=== PATIENT | female | born 1970 | race Hispanic/Latino ===

== ENCOUNTER → 2019-06-12 | Outpatient (CLI) | payer BC | END | disposition home or self-care (01) | LOC: RAH 08:32 | PROVIDERS: ATTEND Internal Medicine Cardiovascular Disease | DX: R06.01 Orthopnea (principal) | CPT/HCPCS: 93306 ==

== ENCOUNTER 2021-01-02 06:33 | Day surgery (SDC) | payer BC, OTHER ==
[2020-12-31 13:01] LABS: BASOPHILS % (AUTO) 0.5 % (0.0-5.0); EOSINOPHILS % (AUTO) 2.5 % (0.0-8.0); HEMATOCRIT 39.3 % (36-48); LYMPHOCYTES % (AUTO) 30.3 % (21.0-51.0); MEAN CORPUSCULAR HEMOGLOBIN 29.6 pg (27.0-33.0); MEAN CORPUSCULAR HGB CONC 32.8 g/dL (32.0-36.0); MEAN CORPUSCULAR VOLUME 90.1 fL (79-99); NEUTROPHILS % (AUTO) 61.4 % (40.0-77.0); PLATELET COUNT (AUTO) 304 K/uL (130-400); RED BLOOD CELL COUNT(AUTO) 4.36 MIL/uL (4.00-5.50); RED CELL DISTRIBUTION WIDTH 12.2 % (11.0-15.5); WHITE BLOOD COUNT (AUTO) 7.5 K/uL (4.8-10.8)
[2020-12-31 13:08] LABS: APPEARANCE,URINE Clear (CLEAR); BILIRUBIN,URINE Negative (NEGATIVE); COLOR,URINE Yellow (YELLOW); GLUCOSE, URINE (UA) Negative (NEGATIVE); KETONES,URINE Negative (NEGATIVE); LEUKOCYTE ESTERASE ,URINE Negative (NEGATIVE); NITRATE,URINE Negative (NEGATIVE); OCCULT BLOOD,URINE Negative (NEGATIVE); PROTEIN,URINE Negative (NEGATIVE); UROBILINOGEN,URINE 0.2 mg/dL (0.2-1.0)
[2020-12-31 13:13] LABS: CREATININE 0.7 mg/dL (0.5-1.5); INR 0.97 (0.85-1.15); POTASSIUM 3.7 mmol/L (3.5-5.1); PROTHROMBIN TIME 10.6 SEC (9.6-11.6)
[2020-12-31 13:14] LABS: PARTIAL THROMBOPLASTIN TIME 24.8 SEC (26.3-35.5)
[2021-01-01 12:07] VITALS: BP 158/77
[2021-01-02] VITALS (9 sets, daily range): BP systolic 128–156; BP diastolic 75–84
[~2021-01-02] VITALS: Ht 160 cm; Wt 58.2 kg
[~2021-01-02 06:33] MED LIST: TAMO10TA PO; VERA120T13 PO
[2021-01-02] MEDS ORDERED: NACL 0.9% 1000ML 1,000 ML IV SCH ×2 (08:00→11:30)
[2021-01-02] MEDS ORDERED: IOHEXOL-350 50ML VIAL IV ONE (09:49)
[2021-01-02] MEDS ORDERED: SODIUM BICARB 50MEQ 50ML VIAL 50 ML ONE (09:49)
[2021-01-02] MEDS ORDERED: NICARDIPINE 25MG INJ IV ONE (09:49)
[2021-01-02] MEDS ORDERED: IOHEXOL 350 MG/ML 100ML INFUS..BTL IV ONE (09:49)
[2021-01-02] MEDS ORDERED: NITROGLYCERIN 2 MG VIAL IV ONE (09:49)
[2021-01-02] MEDS ORDERED: MIDAZOLAM HCL 1 MG/ML 2ML VIAL ONE (09:49)
[2021-01-02] MEDS ORDERED: FENTANYL CITRATE PF 50 MCG/1 ML 2ML VIAL ONE (09:50)
[2021-01-02] MEDS ORDERED: HEPARIN 10,000 UNIT/10ML (1,000 UNIT/ML) VIAL ONE (09:50)
[2021-01-02] MEDS ORDERED: LIDOCAINE HCL 400MG/20ML VIAL ONE (09:50)
[2021-01-02] MEDS ORDERED: LABETALOL 20MG SYG IV ONE (10:57)
== END 2021-01-02 14:40 | disposition home or self-care (01) ==
LOC: DAH 06:33
PROVIDERS: ATTEND Internal Medicine Cardiovascular Disease
DX: I20.9 Angina pectoris, unspecified (principal); R07.9 Chest pain, unspecified; I47.1 Supraventricular tachycardia; I34.0 Nonrheumatic mitral (valve) insufficiency; I10 Essential (primary) hypertension; Z85.3 Personal history of malignant neoplasm of breast; Z98.890 Other specified postprocedural states; Z90.49 Acquired absence of other specified parts of digestive tract; Z90.10 Acquired absence of unspecified breast and nipple; Z82.49 Family history of ischemic heart disease and other diseases of the circulatory system; Z79.01 Long term (current) use of anticoagulants
CPT/HCPCS: 36415 ×2; 71045; 80048; 81003; 85025; 85610; 85730 ×2; 93005; 93458; A4215; A4216; A4221; A4222; A4223 ×3; A4606; A4663; C1760; C1894 ×3; J1644 ×2; J2250; J3010; J3490 ×4; Q9965; Q9967 ×2; 96360; 96361; 99156; 99157

== ENCOUNTER 2021-04-08 06:35 | Day surgery (SDC) | payer BC, OTHER ==
[2021-03-31 16:22] LABS: BASOPHILS % (AUTO) 0.4 % (0.0-5.0); EOSINOPHILS % (AUTO) 0.9 % (0.0-8.0); HEMATOCRIT 37.6 % (36-48); LYMPHOCYTES % (AUTO) 23.6 % (21.0-51.0); MEAN CORPUSCULAR HGB CONC 33.8 g/dL (32.0-36.0); MEAN CORPUSCULAR VOLUME 88.9 fL (79-99); MONOCYTES % (AUTO) 5.4 % (3.0-13.0); NEUTROPHILS % (AUTO) 69.2 % (40.0-77.0); PLATELET COUNT (AUTO) 298 K/uL (130-400); RED BLOOD CELL COUNT(AUTO) 4.23 MIL/uL (4.00-5.50); RED CELL DISTRIBUTION WIDTH 12.4 % (11.0-15.5); WHITE BLOOD COUNT (AUTO) 7.8 K/uL (4.8-10.8)
[2021-04-07 11:12] VITALS: BP 143/82
[~2021-04-08] VITALS: Ht 162.6 cm; Wt 59.8 kg
[2021-04-08] VITALS (17 sets, daily range): BP systolic 93–149; BP diastolic 44–93
[~2021-04-08 06:35] MED LIST changes: +CALC750T4 PO; -VERA120T13 PO; +VERA120T33 PO
[2021-04-08] MEDS ORDERED: PHENAZOPYRIDINE HCL 200 MG TABLET ONE (07:02)
[2021-04-08] MEDS ORDERED: LACTATED RINGERS 1000ML 1,000 ML IV ONE (07:07)
[2021-04-08] MEDS ORDERED: CLINDAMYCIN IVPB 600MG/50ML 50 ML IV ONE (07:08)
[2021-04-08] MEDS: METRONIDAZOLE 500MG/100ML BAG 100 ML IVPB SCH ×2 (07:30→07:50)
[2021-04-08] MEDS ORDERED: CELECOXIB 200 MG CAP PO SCH (07:30)
[2021-04-08] MEDS ORDERED: LIDOCAINE 1%-EPI 1:100,000 20 ML VIAL IJ SCH (07:30)
[2021-04-08] MEDS ORDERED: BUPIVACAINE LIPOSOME/PF 266 MG/20 ML ML IJ SCH (07:30)
[2021-04-08] MEDS ORDERED: ACETAMINOPHEN 500 MG TABLET PO SCH ×2 (07:30→13:00)
[2021-04-08] MEDS ORDERED: ONDANSETRON 4MG INJ ONE (07:38)
[2021-04-08] MEDS ORDERED: MIDAZOLAM HCL 1 MG/ML 2ML VIAL ONE (07:38)
[2021-04-08] MEDS ORDERED: PROPOFOL 10 MG/ML 20ML VIAL IV ONE (07:38)
[2021-04-08] MEDS ORDERED: DEXAMETHASONE SOD PHOSPHATE 10MG/ML 1ML VIAL ONE (07:38)
[2021-04-08] MEDS ORDERED: NEOSTIGMINE 5MG/5ML SYR IV ONE (07:38)
[2021-04-08] MEDS ORDERED: LIDOCAINE PF 100MG/5ML (2%) SYRINGE 5ML ONE (07:38)
[2021-04-08] MEDS ORDERED: GLYCOPYRROLATE 1 MG/5 ML SYRINGE ONE (07:38)
[2021-04-08] MEDS ORDERED: SUCCINYLCHOLINE 200MG/10ML SYR ONE (07:38)
[2021-04-08] MEDS ORDERED: ROCURONIUM 10MG/1ML SYR 10 MG/ML ML ONE (07:38)
[2021-04-08] MEDS ORDERED: FENTANYL CITRATE PF 50 MCG/1 ML 2ML VIAL ONE ×2 (07:38→09:52)
[2021-04-08] MEDS ORDERED: METOPROLOL TARTRATE 1 MG/ML 5ML VIAL IV ONE (07:54)
[2021-04-08] MEDS ORDERED: SCOPOLAMINE HYDROBROMIDE 1 EACH ADH..PATCH TD ONE (08:01)
[2021-04-08] MEDS ORDERED: PHENYLEPHRINE HCL 10 MG/ML 1ML VIAL IV ONE (08:14)
[2021-04-08] MEDS ORDERED: LIDOCAINE HCL MPF 1% 5ML VIAL ONE (10:07)
[2021-04-08] MEDS ORDERED: MEPERIDINE-PF 25 MG/ML SYG ONE (10:16)
[2021-04-08] MEDS ORDERED: LORAZEPAM 1 MG TABLET PO PRN (13:00)
[2021-04-08] MEDS ORDERED: LORAZEPAM 2 MG/ML 1 ML VIAL IVP PRN (13:00)
[2021-04-08] MEDS ORDERED: MORPHINE 5 MG/ML VIAL (5MG OR GREATER DOSE) IVP PRN (13:00)
[2021-04-08] MEDS ORDERED: ONDANSETRON 4MG INJ IVP PRN (13:00)
[2021-04-08] MEDS ORDERED: 0.9%NACL 1000ML 1,000 ML IV SCH (13:00)
[2021-04-08] MEDS ORDERED: DEXTROSE 5%-LACTATED RINGERS 1,000 ML IV SCH (13:00)
== END 2021-04-08 14:12 | disposition home or self-care (01) ==
LOC: DAH 06:35
PROVIDERS: ATTEND Obstetrics & Gynecology
DX: N88.1 Old laceration of cervix uteri (principal); N39.3 Stress incontinence (female) (male); Z20.822 Contact with and (suspected) exposure to COVID-19; N88.9 Noninflammatory disorder of cervix uteri, unspecified; I10 Essential (primary) hypertension; I25.10 Atherosclerotic heart disease of native coronary artery without angina pectoris; I48.91 Unspecified atrial fibrillation; K21.9 Gastro-esophageal reflux disease without esophagitis; Z85.3 Personal history of malignant neoplasm of breast; Z88.8 Allergy status to other drugs, medicaments and biological substances; Z79.899 Other long term (current) drug therapy; Z98.890 Other specified postprocedural states; Z82.49 Family history of ischemic heart disease and other diseases of the circulatory system; Z83.3 Family history of diabetes mellitus; Z84.1 Family history of disorders of kidney and ureter; Z83.49 Family history of other endocrine, nutritional and metabolic diseases; Z72.89 Other problems related to lifestyle; Z90.49 Acquired absence of other specified parts of digestive tract; Z87.410 Personal history of cervical dysplasia
CPT/HCPCS: 36415 ×2; 57288; 58571; 84703; 85025; 86850 ×2; 86900 ×2; 86901 ×2; 87635; A4215 ×3; A4221; A4222; A4223; A4344; A4510; A4600; A4649 ×3; A4663; A4930; A6260; C1771; C9290; C9803; G0168; J0330; J1100; J2001; J2175; J2250; J2370; J2405 ×2; J2704; J2710; J3010 ×2; J3490 ×6; J7030; J7120 ×2; S2900

== ENCOUNTER → 2022-01-29 | Outpatient (CLI) | payer BC ==
[~2022-01-29] MED LIST changes: -VERA120T33 PO; +VERA120T92 PO
[2022-01-29 12:29] LABS: BASOPHILS % (AUTO) 0.7 % (0.0-5.0); EOSINOPHILS % (AUTO) 1.7 % (0.0-8.0); HEMATOCRIT 39.2 % (36-48); LYMPHOCYTES % (AUTO) 30.9 % (21.0-51.0); MEAN CORPUSCULAR HEMOGLOBIN 27.3 pg (27.0-33.0); MEAN CORPUSCULAR HGB CONC 32.1 g/dL (32.0-36.0); MEAN CORPUSCULAR VOLUME 84.8 fL (79-99); NEUTROPHILS % (AUTO) 60.4 % (40.0-77.0); PLATELET COUNT (AUTO) 321 K/uL (130-400); RED BLOOD CELL COUNT(AUTO) 4.62 MIL/uL (4.00-5.50); RED CELL DISTRIBUTION WIDTH 13.4 % (11.0-15.5)
[2022-01-29 12:39] LABS: ALBUMIN 3.8 g/dL (3.5-5.0); CREATININE 0.8 mg/dL (0.5-1.5); POTASSIUM 4.4 mmol/L (3.5-5.1); TOTAL PROTEIN, SERUM 7.2 g/dL (6.0-8.3)
== END | disposition home or self-care (01) ==
LOC: LAB 08:20
PROVIDERS: ATTEND Internal Medicine Cardiovascular Disease
DX: I47.1 Supraventricular tachycardia (principal); R03.0 Elevated blood-pressure reading, without diagnosis of hypertension
CPT/HCPCS: 36415; 80053; 85025